=== PATIENT | male | born 1960 | race Caucasian/White ===

== ENCOUNTER 2020-09-25 10:01 | Emergency (ER) | payer SELFPAY ==
[2020-09-25 10:11] VITALS: BP 132/94; PULSE 87; TEMP 97.9; BMI 25.8
== END 2020-09-25 12:37 | disposition home or self-care (01) ==
LOC: JER 10:01
DX: J20.9 Acute bronchitis, unspecified (principal); J06.9 Acute upper respiratory infection, unspecified
CPT/HCPCS: 71046-TC-FY; 99283-25

== ENCOUNTER 2020-12-11 09:25 | Emergency (ER) | payer OTHER ==
[2020-12-11 09:40] VITALS: BP 137/76; PULSE 85; TEMP 97.1; BMI 25.8
[2020-12-11] MEDS ORDERED: ALBUTEROL SO4 2.5/IPRATROPIUM 0.5 INH SOL 3 ML VIAL.NEB. NEB ONE ×2 (09:54→11:04)
== END 2020-12-11 12:02 | disposition home or self-care (01) ==
LOC: JER 09:25
PROC: 3E0F7GC Introduction of Other Therapeutic Substance into Respiratory Tract, Via Natural or Artificial Opening (ICD-10-PCS; principal; 2020-12-11)
DX: R06.02 Shortness of breath (principal); Z11.52 Encounter for screening for COVID-19
CPT/HCPCS: 71046-TC-FY; 93005; 93010; 94640; 99285-25; C9803; U0003; U0005

== ENCOUNTER 2021-11-14 10:33 | Observation (INO) | payer OTHER ==
[2021-11-14 10:58] VITALS: BMI 25.5
[2021-11-14] MEDS ORDERED: ASPIRIN 81 MG CHEWABLE TABLETS PO ONE (12:01)
[2021-11-14] MEDS ORDERED: DEXAMETHASONE LIQUID 0.5 MG/5 ML PO ONE (12:04)
[2021-11-14] MEDS ORDERED: DEXAMETHASONE SOD PHOSPHATE 10 MG/1 ML VIAL ONE (12:16)
[2021-11-14] MEDS ORDERED: ASPIRIN 81 MG CHEWABLE TABLETS ONE (12:16)
[2021-11-14] MEDS: ALBUTEROL SO4 2.5/IPRATROPIUM 0.5 INH SOL 3 ML VIAL.NEB. NEB SCH ×2 (12:24→19:42)
[2021-11-14 13:20] LABS: BASO % 0.3 % (0-2.0); CALCIUM 9.2 mg/dL (8.5-10.1); EOS % 0.8 % (0-4.5); HEMATOCRIT 43.1 % (35.4-49); HEMOGLOBIN 14.9 GM/dL (11.7-16.9); LYMPH % 14.7 % (8-40); MCH 31.4 pg (25.7-33.7); MCHC 34.5 g/dl (32.0-35.9); MONO % 5.7 % (3.8-10.2); NEUT % 78.5 % (42.8-82.8); PLATELET COUNT 260 10^3/uL (134-434); RBC 4.74 M/mm3 (4.00-5.60); RDW 14.7 % (11.9-15.9); WHITE BLOOD COUNT 20.3 K/mm3 (4.0-10.0)
[2021-11-14 13:21] LABS: BLOOD UREA NITROGEN 15.2 mg/dL (7-18); MAGNESIUM 2.1 mg/dL (1.8-2.4)
[2021-11-14 13:22] LABS: ALBUMIN 3.8 g/dl (3.4-5.0)
[2021-11-14 13:24] LABS: CREATININE 0.8 mg/dL (0.55-1.3)
[2021-11-14 13:25] LABS: PROTHROMBIN TIME (PATIENT) 11.5 SEC (9.7-13.0)
[2021-11-14 13:26] LABS: BILIRUBIN,TOTAL 0.6 mg/dL (0.2-1)
[2021-11-14 13:58] LABS: ANISOCYTOSIS 0; HELMET CELLS 0; HOWELL-JOLLY BODIES 0; MACROCYTOSIS 0; OVALOCYTE 0; ROULEAU 0; SICKELED CELLS 0; TARGET CELLS 0; TEAR DROP CELLS 0; TOXIC GRANULATION 0
[2021-11-14] MEDS ORDERED: ALBUTEROL SO4 HFA INHALER IH PRN (15:55)
[2021-11-14] MEDS ORDERED: guaiFENesin 200 MG/10 ML 10 ML UNIT-DOSE CUPS PO PRN (15:55)
[2021-11-14] MEDS ORDERED: ATORVASTATIN CA 20 MG TABLET (FP) ONE (21:27)
[2021-11-14] MEDS ORDERED: methylPREDNISolone NA SUCC 40 MG/1 ML VIAL ONE (21:27)
[2021-11-14] MEDS: methylPREDNISolone NA SUCC 125 MG/2 ML VIAL IVPUSH SCH (21:41)
[2021-11-14] MEDS ORDERED: ATORVASTATIN CA 20 MG TABLET (FP) PO SCH (22:00)
[2021-11-14] MEDS: BUDESONIDE/FORMETEROL FUMARATE 160/4.5 mcg INHALER IH SCH (22:40)
[2021-11-15 05:55] VITALS: TEMP 99.7
[2021-11-15] MEDS ORDERED: ENOXAPARIN NA (PORCINE) 40 MG/0.4 ML DISP.SYRIN SQ SCH (10:00)
[2021-11-15] MEDS ORDERED: ENOXAPARIN NA (PORCINE) 40 MG/0.4 ML DISP.SYRIN SQ ONE (10:20)
[2021-11-15] MEDS ORDERED: methylPREDNISolone NA SUCC 40 MG/1 ML VIAL ONE (10:20)
[2021-11-15] MEDS: methylPREDNISolone NA SUCC 125 MG/2 ML VIAL IVPUSH SCH (10:45)
[2021-11-15] MEDS: BUDESONIDE/FORMETEROL FUMARATE 160/4.5 mcg INHALER IH SCH (10:45)
[2021-11-15 17:46] VITALS: BP 130/77; PULSE 78
[2021-11-15] MEDS ORDERED: MONTELUKAST NA 10 MG TABLET PO SCH (22:00)
== END 2021-11-15 17:43 | disposition home or self-care (01) ==
LOC: JER 10:33 → JERFT 10:33 → JERBED 14:14
PROVIDERS: ADMIT Internal Medicine; ATTEND Internal Medicine
PROC: 3E0F7GC Introduction of Other Therapeutic Substance into Respiratory Tract, Via Natural or Artificial Opening (ICD-10-PCS; principal; 2021-11-14)
PROC: 3E023GC Introduction of Other Therapeutic Substance into Muscle, Percutaneous Approach (ICD-10-PCS; 2021-11-14)
PROC: 3E033GC Introduction of Other Therapeutic Substance into Peripheral Vein, Percutaneous Approach (ICD-10-PCS; 2021-11-14)
DX: J45.909 Unspecified asthma, uncomplicated (principal); R07.89 Other chest pain; R05.9 Cough, unspecified
CPT/HCPCS: 0241U-QW; 36415; 70450-TC; 71046-TC-FY; 80053; 80061; 83735; 84484; 85025; 85610; 85730; 93005; 93010; 94640; 94761; 96372; 96374; 99285-25; G0378

== ENCOUNTER 2022-01-07 09:57 | Emergency (ER) | payer OTHER ==
[2022-01-07 10:17] VITALS: BP 112/78; PULSE 73; RESP 17; TEMP 97.4; BMI 25.5
[2022-01-07] MEDS ORDERED: KETOROLAC TROMETHAMINE 30 MG/1 ML VIAL IM ONE (11:34)
[2022-01-07] MEDS ORDERED: KETOROLAC TROMETHAMINE 30 MG/1 ML VIAL ONE (11:44)
== END 2022-01-07 13:57 | disposition home or self-care (01) ==
LOC: JERFT 09:57
PROC: 3E0233Z Introduction of Anti-inflammatory into Muscle, Percutaneous Approach (ICD-10-PCS; principal; 2022-01-07)
DX: M25.561 Pain in right knee (principal)
CPT/HCPCS: 73562-TC-RT-FY; 99284-25

== ENCOUNTER 2022-07-04 08:55 | Emergency (ER) | payer OTHER ==
[2022-07-04 09:03] VITALS: TEMP 97.9; BMI 25.8
[2022-07-04] MEDS ORDERED: ALBUTEROL SO4 2.5/IPRATROPIUM 0.5 INH SOL 3 ML VIAL.NEB. NEB ONE ×2 (09:18)
[2022-07-04] MEDS ORDERED: DEXAMETHASONE SOD PHOSPHATE 10 MG/1 ML VIAL ONE ×2 (09:18→10:09)
[2022-07-04] MEDS ORDERED: DEXAMETHASONE 1.5 MG TABLET PO ONE (09:19)
[2022-07-04 09:48] LABS: BASO % 0.6 % (0-2.0); EOS % 10.2 % (0-4.5); HEMATOCRIT 40.5 % (35.4-49); HEMOGLOBIN 14.3 GM/dL (11.7-16.9); LYMPH % 24.7 % (8-40); MCH 32.1 pg (25.7-33.7); MCHC 35.2 g/dl (32.0-35.9); MEAN CELL VOLUME 91.2 fl (80-96); MEAN PLT VOLUME 8.8 fl (7.5-11.1); MONO % 9.4 % (3.8-10.2); NEUT % 55.1 % (42.8-82.8); PLATELET COUNT 247 10^3/uL (134-434); RBC 4.44 M/mm3 (4.00-5.60); RDW 14.1 % (11.9-15.9); WHITE BLOOD COUNT 9.9 K/mm3 (4.0-10.0)
[2022-07-04 10:12] LABS: ALBUMIN 3.4 g/dl (3.4-5.0); BLOOD UREA NITROGEN 15.7 mg/dL (7-18); CALCIUM 8.8 mg/dL (8.5-10.1)
[2022-07-04 10:15] LABS: CREATININE 0.8 mg/dL (0.55-1.3)
[2022-07-04 10:17] LABS: BILIRUBIN,TOTAL 0.4 mg/dL (0.2-1); TOT PROT 7.2 g/dl (6.4-8.2)
[2022-07-04] MEDS ORDERED: ALBUTEROL SO4 0.083% IH SOL 2.5 MG/3 ML VIAL.NEB. NEB ONE ×2 (11:22→11:24)
[2022-07-04 12:29] VITALS: BP 109/72; PULSE 98; RESP 20
== END 2022-07-04 12:53 | disposition home or self-care (01) ==
LOC: JER 08:55
PROC: 3E0F7GC Introduction of Other Therapeutic Substance into Respiratory Tract, Via Natural or Artificial Opening (ICD-10-PCS; principal; 2022-07-04)
DX: J45.901 Unspecified asthma with (acute) exacerbation (principal)
CPT/HCPCS: 0241U-QW; 36415; 71046-TC-FY; 80053; 84484; 85025; 93005; 93010; 99285-25